=== PATIENT | male | born 1945 | race Hispanic/Latino ===

== ENCOUNTER 2016-10-25 09:13 | Day surgery (SDC) | payer MEDICARE, BC ==
[2016-10-14 12:16] VITALS: BMI 36.2
[2016-10-25 10:09] VITALS: RESP 16
[2016-10-25] MEDS ORDERED: Propofol 10 mg/ml Inj (20 ML) ONE (11:03)
[2016-10-25 12:32] VITALS: BP 121/78; PULSE 61; TEMP 98.1; O2SAT 98
== END 2016-10-25 13:14 | disposition home or self-care (01) ==
LOC: ENDO 09:13
PROVIDERS: ATTEND Internal Medicine Gastroenterology
DX: K22.70 Barrett's esophagus without dysplasia (principal); K29.50 Unspecified chronic gastritis without bleeding; E11.9 Type 2 diabetes mellitus without complications; I25.10 Atherosclerotic heart disease of native coronary artery without angina pectoris; I10 Essential (primary) hypertension; I25.2 Old myocardial infarction; Z96.659 Presence of unspecified artificial knee joint; K21.9 Gastro-esophageal reflux disease without esophagitis
CPT/HCPCS: 43239; 82948; 88305; 88312; 88342; J2001; J2704; J3010; J7040